=== PATIENT | male | born 2000 | race African-American/Black ===

== ENCOUNTER 2021-04-05 20:30 | Emergency (ER) | payer SELFPAY ==
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
[2021-04-05 22:47] VITALS: TEMP 97.9; O2SAT 100
[2021-04-05 22:48] VITALS: BP 112/76
== END 2021-04-05 22:31 | disposition home or self-care (01) ==
LOC: ER 20:30
DX: S60.221A Contusion of right hand, initial encounter (principal); M25.521 Pain in right elbow; F17.210 Nicotine dependence, cigarettes, uncomplicated
CPT/HCPCS: 99283